=== PATIENT | female | born 1970 | race Two or more races ===

== ENCOUNTER 2020-11-17 09:59 | Emergency (ER) | payer OTHER, SELFPAY ==
[2020-11-17 10:20] VITALS: BP 142/94; PULSE 101; RESP 16; TEMP 36.2; O2SAT 97; BMI 32.9
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
[2020-11-17] MEDS: diphenhydrAMINE HCL 25 MG TABLET 50 MG PO (10:58)
== END 2020-11-17 11:14 | disposition home or self-care (01) ==
PROVIDERS: Emergency Provider Emergency Medicine
DX: L50.9 Urticaria, unspecified (principal)
CPT/HCPCS: 99283; Q0163

== ENCOUNTER 2021-02-06 16:07 | Emergency (ER) | payer OTHER, SELFPAY ==
[2021-02-06 16:29] VITALS: BP 138/72; PULSE 81; RESP 16; TEMP 37.1; O2SAT 97; BMI 34.2
[2021-02-06 18:23] LABS: MANUAL DIFF FLAG NO
[2021-02-06 18:28] LABS: Basophils Absolute Auto 0.1 X10*3/uL (0.0-0.2); Basophils Percent Auto 0.4 % (0-2); Eosinophils Percent Auto 0.2 % (0-4); Hematocrit 44.9 % (37-47); Hemoglobin 15.1 g/dl (12.0-16.0); Imm Gran Abs Auto 0.08 X10*3/uL (0.00-0.03); Imm Gran Pct Auto 0.5 % (0.0-0.4); Lymphocytes Absolute Auto 2.5 X10*3/uL (1.2-4.9); Lymphocytes Percent Auto 16.1 % (20-40); Mean Corpuscular HGB Conc 33.6 g/dl (31.0-35.0); Mean Corpuscular Volume 89.1 fL (80-98); Mean Platelet Volume 9.9 fL (9.4-12.3); Monocytes Absolute Auto 0.7 X10*3/uL (0.1-1.2); Monocytes Percent Auto 4.4 % (2-11); Neutrophils Absolute Auto 12.2 X10*3/uL (2.0-8.3); Neutrophils Percent Auto 78.4 % (45-73); Platelet Count 478 X10*3/uL (160-400); Red Blood Count 5.04 X10*6/uL (4.20-5.50); Red Cell Distribution Width 13.3 % (11.0-16.0); White Blood Count 15.6 X10*3/uL (4.8-10.8)
[2021-02-06 19:13] LABS: Anion Gap 15 (12-20); Blood Urea Nitrogen 9 mg/dL (9-16); Calcium 9.8 mg/dL (8.4-10.2); Carbon Dioxide 21 mmol/L (22-29); Chloride 106 mmol/L (96-108); Creatinine Clr Calc Pharmacy 72.3; Estimated Glomerular Filt Rate > 60; Glucose Random 134 mg/dL (60-115); Lipase 21 U/L (8-78); Sodium 138 mmol/L (135-145)
[2021-02-06 19:14] LABS: Troponin-I High Sensitivity < 3.5 ng/L (<3.5-17.0)
--- NOTE | 2021-02-06 22:11 | ED_ITS ---
HPI - General Adult General Chief complaint: Dizziness Stated complaint: Dizziness, weak, vomiting, nauseous Time Seen by Provider: 02/06/21 22:03 Source: patient Mode of arrival: ambulatory Limitations: no limitations History of Present Illness HPI narrative: Patient comes emergency room complaining of vomiting and diarrhea since yesterday. Patient states that she ate sausage the night before, thinks that the flavor of, tasted funny, aided anyways. In the morning she woke up vomiting and with diarrhea. Patient initially stated that she had dizziness, described as not feeling well, denies being off balance, no room spinning. Patient did not take any medication [id number] prior to arrival Related Data Previous Rx's Medication Instructions Recorded hydrocortisone 1 % topical cream 1 appl TOPICAL TID PRN #28.35 g 11/17/20 prednisone 10 mg tablets in a dose 10 mg PO PER PKG DIR #48 ea 11/17/20 pack hyoscyamine sulfate 0.125 mg tablet 0.125 mg PO QID #10 tab 02/06/21 ondansetron HCl 4 mg tablet 4 mg PO Q6H PRN #10 tab 02/06/21 (Zofran) Allergies Allergy/AdvReac Type Severity Reaction Status Date / Time Influenza Virus Vaccines Allergy Itching Verified 02/06/21 16:32 Review of Systems Review of Systems: Constitutional : No Weight loss, No Fever, No Chills, No Night Sweats, No Fatigue, No Malaise ENT/Mouth : No Hearing loss, No Ear Pain, No Nasal Congestion, No Sinus Pain, No Hoarseness, No sore throat, No Rhinorrhea, No Swallowing Difficulty Eyes: No Eye Pain, No Swelling, No Redness, No Foreign Body, No Discharge, No Vision Changes Cardiovascular : No Chest Pain, No SOB, No Dyspnea on Exertion, No Orthopnea, No Edema, No Palpitations Respiratory : No Cough, No Sputum, No Wheezing, No Smoke Exposure, No Dyspnea Gastrointestinal : Complaining of nausea, vomiting and diarrhea. Constipation, complaining of diffuse abdominal cramping intermittently, No Hematochezia, No Melena Genitourinary : no irregular bleeding, No Dysuria, No Urinary Frequency, No Hematuria, No Urinary Incontinence, No Urgency, No Flank Pain, No Urinary Flow Changes, No Hesitancy Musculoskeletal : No joint pain, No Myalgias, No Joint Swelling Skin : No Skin Lesions, No rash Neuro : No Weakness, No Numbness, No Paresthesias, No Loss of Consciousness, No Dizziness, No Headache Psych : No Anxiety/Panic, No Depression, No SI/HI/AH/VH, No Social Issues, Heme/Lymph: No Bruising, No Bleeding,No Lymphadenopathy Endocrine : No Polyuria, No Polydipsia, No Temperature Intolerance PMFSH Past Medical History Medical History Adrenal mass Anxiety Asthma Depression Fibroid Panic attacks Surgical History H/O: hysterectomy History of cholecystectomy Social History Social History Advance Directives: No Advance Directives Information Provided: No Patient : No Physical Exam Vital Signs: Vital Signs: Last Vital Signs Temp 98.7 F 02/06/21 16:29 Pulse 81 02/06/21 16:29 Resp 16 02/06/21 16:29 BP 138/72 02/06/21 16:29 Pulse Ox 97 02/06/21 16:29 Body Mass Index 34.2 Const: Other: Appearance: Alert. Oriented X3. No acute distress. Well- appearing Eyes: Pupils equal, round and reactive to light. ENT: Pharynx normal. Neck: Normal inspection. Neck supple. No lymph nodes noted. No crepitus CVS: Normal heart rate and rhythm. Pulses normal. Normal S1 and S2 Respiratory: No respiratory distress. Breath sounds normal. No Wheezing. No rales Abdomen: Soft and nontender in all quadrants, No rigidity. No distention. Skin: Skin warm and dry. Normal skin color. Normal skin turgor. Extremities: No lower extremity edema. No lower extremity edema. No Lacerations. No Rash Neuro: Oriented X 3. No motor deficit. No sensory deficit. Moving all extermities. No slurred speech. Course Course Course Narrative: I discussed the physical exam and labs with the patient, patient's white blood cell count likely secondary to the vomiting/diarrhea, likely secondary to the food she ate. Patient is tolerating well p.o. fluids. As mentioned above, physical exam there was no abdominal pain on deep palpation. Medical Decision Making Lab Data Result diagrams: 02/06/21 18:14 02/06/21 18:14 Labs: Lab Results 08/12/2202/06/21 02/06/21 Range/Units 18:14 18:14 18:14 WBC 15.6 H (4.8-10.8) X10*3/uL RBC 5.04 (4.20-5.50) X10*6/uL Hgb 15.1 (12.0-16.0) g/dl Hct 44.9 (37-47) % MCV 89.1 (80-98) fL MCH 30.0 (27.0-33.0) pg MCHC 33.6 (31.0-35.0) g/dl RDW 13.3 (11.0-16.0) % Plt Count 478 H (160-400) X10*3/uL MPV 9.9 (9.4-12.3) fL Immature Gran % (Auto) 0.5 H (0.0-0.4) % Neut % (Auto) 78.4 H (45-73) % Lymph % (Auto) 16.1 L (20-40) % [place] % (Auto) 4.4 (2-11) % Eos % (Auto) 0.2 (0-4) % Baso % (Auto) 0.4 (0-2) % Lymph # (Auto) 2.5 (1.2-4.9) X10*3/uL [place] # (Auto) 0.7 (0.1-1.2) X10*3/uL Eos # (Auto) 0.0 (0.0-0.4) X10*3/uL Baso # (Auto) 0.1 (0.0-0.2) X10*3/uL Abs Immat Gran (auto) 0.08 H (0.00-0.03) X10*3/uL Absolute Neuts (auto) 12.2 H (2.0-8.3) X10*3/uL Absolute Nucleated RBC 0.000 (0.0-0.012) X10*3/uL Nucleated RBC % (auto) 0.0 (0.0-0.2) /100WBC Sodium 138 (135-145) mmol/L Potassium 4.0 (3.3-5.1) mmol/L Chloride 106 (96-108) mmol/L Carbon Dioxide 21 L (22-29) mmol/L Anion Gap 15 (12-20) BUN 9 (9-16) mg/dL Creatinine 0.95 (0.5-1.4) mg/dL Estim Creat Clear Calc 72.3 Estimated GFR > 60 Random Glucose 134 H (60-115) mg/dL Calcium 9.8 (8.4-10.2) mg/dL Magnesium 2.0 (1.6-2.6) mg/dL Troponin I High Sens < 3.5 (<3.5-17.0) ng/L Lipase 21 (8-78) U/L Discharge Plan Discharge Clinical Impression: Nausea vomiting and diarrhea Patient Disposition: Home, Self-Care Instructions: Gastroenteritis (ED) Additional Instructions: Stay well hydrated. Try to drink fluids with electrolytes such as Pedialyte, Gatorade or Powerade. Please follow-up with your primary care physician tomorrow. If you have any worsening or new symptoms, please return to the emergency room or call 911 Prescriptions: New ondansetron HCl [Zofran] 4 mg tablet 4 mg PO Q6H PRN (Reason: nausea and vomiting) Qty: 10 RF: 0 hyoscyamine sulfate 0.125 mg tablet 0.125 mg PO QID Qty: 10 RF: 0 No Action prednisone 10 mg tablets,dose pack 10 mg PO PER PKG DIR Qty: 48 RF: 0 hydrocortisone 1 % cream 1 appl topical TID PRN (Reason: itching) Qty: 28.35 RF: 0
[2021-02-06] MEDS: PHENobarb/Hyoscy/Atropine/Scop 10 ML ELIXIR PO (22:35)
[2021-02-06] MEDS: Ondansetron ODT 4 MG TAB.RAPDIS TRANSLINGU (22:35)
== END 2021-02-06 22:39 | disposition home or self-care (01) ==
PROVIDERS: Emergency Provider Emergency Medicine
DX: R19.7 Diarrhea, unspecified (principal); R11.2 Nausea with vomiting, unspecified
CPT/HCPCS: 36415; 80048; 83690; 83735; 84484; 85025; 96374; 99284

== ENCOUNTER 2021-06-28 13:44 | Emergency (ER) | payer OTHER, SELFPAY | END 2021-06-28 19:34 | disposition left against medical advice (07) | PROVIDERS: Emergency Provider Emergency Medicine | DX: Z04.1 Encounter for examination and observation following transport accident (principal) ==

== ENCOUNTER 2021-12-29 20:12 | Emergency (ER) | payer OTHER, SELFPAY ==
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
[2021-12-29 21:42] VITALS: BP 152/70; PULSE 88; RESP 18; TEMP 37.1; O2SAT 98; BMI 36.0
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
[2021-12-29] MEDS: Acetaminophen 325 MG TABLET 975 MG PO (23:55)
[2021-12-29] MEDS: oxyCODONE HCl Immed Release 5 MG TABLET PO (23:56)
== END 2021-12-30 00:09 | disposition home or self-care (01) ==
PROVIDERS: Emergency Provider Emergency Medicine
DX: S06.0X0A Concussion without loss of consciousness, initial encounter (principal); S16.1XXA Strain of muscle, fascia and tendon at neck level, initial encounter; M54.50 Low back pain, unspecified; M54.2 Cervicalgia; R51.9 Headache, unspecified; V43.52XA Car driver injured in collision with other type car in traffic accident, initial encounter; Y93.9 Activity, unspecified; Y92.410 Unspecified street and highway as the place of occurrence of the external cause; Y99.9 Unspecified external cause status; Z87.891 Personal history of nicotine dependence; Z79.899 Other long term (current) drug therapy
CPT/HCPCS: 70450; 72100; 72125; 99284

== ENCOUNTER 2022-03-02 16:22 | Emergency (ER) | payer OTHER, SELFPAY ==
[2022-03-02 16:36] VITALS: BP 158/75; PULSE 18; RESP 18; TEMP 36.9; O2SAT 98; BMI 34.7
[2022-03-02 16:49] LABS: MANUAL DIFF FLAG NO
[2022-03-02 16:50] LABS: Basophils Absolute Auto 0.1 X10*3/uL (0.0-0.2); Basophils Percent Auto 0.5 % (0-2); Eosinophils Absolute Auto 0.1 X10*3/uL (0.0-0.4); Eosinophils Percent Auto 1.1 % (0-4); Hemoglobin 14.7 g/dl (12.0-16.0); Imm Gran Abs Auto 0.05 X10*3/uL (0.00-0.03); Imm Gran Pct Auto 0.4 % (0.0-0.4); Lymphocytes Absolute Auto 2.2 X10*3/uL (1.2-4.9); Lymphocytes Percent Auto 16.8 % (20-40); Mean Corpuscular HGB Conc 34.2 g/dl (31.0-35.0); Mean Corpuscular Hemoglobin 30.1 pg (27.0-33.0); Mean Corpuscular Volume 88.1 fL (80.0-98.0); Mean Platelet Volume 9.6 fL (9.4-12.3); Monocytes Absolute Auto 0.7 X10*3/uL (0.1-1.2); Neutrophils Absolute Auto 10.1 x10*3/uL (2.0-8.3); Neutrophils Percent Auto 76.2 % (45-73); Platelet Count 442 X10*3/uL (160-400); Red Blood Count 4.88 X10*6/uL (4.20-5.50); Red Cell Distribution Width 13.2 % (11.0-16.0); White Blood Count 13.2 X10*3/uL (4.8-10.8)
[2022-03-02 17:12] LABS: Anion Gap 15 (12-20); Blood Urea Nitrogen 13 mg/dL (9-16); Calcium 9.4 mg/dL (8.4-10.2); Carbon Dioxide 26 mmol/L (22-29); Chloride 104 mmol/L (96-108); Creatinine Clr Calc Pharmacy 72.1; Estimated Glomerular Filt Rate > 60; Glucose Random 109 mg/dL (60-115); Potassium 4.1 mmol/L (3.3-5.1); Sodium 141 mmol/L (135-145)
[2022-03-02 18:39] VITALS: BP 144/77; PULSE 81; RESP 20; TEMP 37; O2SAT 99
[2022-03-02 18:48] LABS: Appearance Urine Turbid; Color Urine Yellow; Glucose Urine UA Negative (Negative); Leukocyte Esterase Urine Negative (Negative); Nitrite Urine Negative (Negative); Urine Blood Negative (Negative); Urine Ketones Negative (Negative); Urine Protein Negative (Neg-Trace)
--- NOTE | 2022-03-02 19:01 | ED_ITS ---
HPI - General Adult General Chief complaint: Headache Stated complaint: headaches/hip/leg pain/numbness in face Time Seen by Provider: 03/02/22 19:01 Source: patient Mode of arrival: ambulatory Limitations: no limitations History of Present Illness HPI narrative: Patient history of depression, anxiety comes in with multiple problems chronic body pain medication are effective seen a psychiatrist was started on sertraline patient has not taken it patient does have poor sleep pain is mostly in the upper back area Related Data Previous Rx's Medication Instructions Recorded hydrocortisone 1 % topical cream 1 appl topical TID PRN itching 11/17/20 #28.35 grams prednisone 10 mg tablets in a dose 10 mg PO PER PKG DIR #48 ea 11/17/20 pack hyoscyamine sulfate 0.125 mg tablet 0.125 mg PO QID #10 tabs 02/06/21 ondansetron HCl 4 mg tablet 4 mg PO Q6H PRN nausea and 02/06/21 (Zofran) vomiting #10 tabs cyclobenzaprine 5 mg tablet 5 mg PO TID PRN muscle spasm #10 12/30/21 tabs ibuprofen 600 mg tablet 600 mg PO Q6H PRN pain #20 tabs 12/30/21 oxycodone 5 mg tablet 5 mg PO Q6H PRN pain #10 tabs 12/30/21 cyclobenzaprine 10 mg tablet 10 mg PO Q8H #20 tabs 03/02/22 gabapentin 300 mg capsule 300 mg PO BEDTIME #30 caps 03/02/22 ibuprofen 600 mg tablet 600 mg PO Q8H PRN pain #30 tabs 03/02/22 Allergies Allergy/AdvReac Type Severity Reaction Status Date / Time Influenza Virus Vaccines Allergy Itching Verified 02/06/21 16:32 Review of Systems 2 Review of Systems: Yes all other systems are reviewed and are negative PMFSH Past Medical History Medical History Adrenal mass Anxiety Asthma Depression Fibroid Panic attacks Surgical History H/O: hysterectomy History of cholecystectomy Social History Social History Alcohol intake: never Patient Tobacco Use Status: Former Tobacco user Advance Directives: No Advance Directives Information Provided: Yes Physical Exam ED Vital Signs: Vital Signs - 24 hr 03/02/22 16:36 03/02/22 18:39 Temperature 98.4 F 98.6 F Pulse Rate 18 L 81 Respiratory Rate 18 20 Blood Pressure 158/75 H 144/77 H Pulse Oximetry 98 99 Oxygen Delivery Method Room Air Room Air BMI result Body Mass Index 34.7 Appearance: Alert. Oriented X3. No acute distress. Anxious Eyes: PERRLA, No Nystagmus ENT: Pharynx normal. Oral Mucosa moist Neck: Normal inspection. Neck supple. CVS: Normal heart rate and rhythm. Pulses normal. Respiratory: No respiratory distress. Equal air entry bilateral, no wheezing /rales/rhonchi Abdomen: Soft and nontender. Bowel sounds are present, no mass palpable, no CVA tenderness Skin: Skin warm and dry. Normal skin color. Normal skin turgor. Extremities: No lower extremity edema. No calf tenderness back; diffuse interscapular suprascapular muscle tenderness Neuro: Oriented X 3. No motor deficit. No sensory deficit.No cerebellar signs , cranial nerves II-XII intact Medical Decision Making MDM Narrative Medical decision making narrative: Patient with chronic fatigue anxiety depression likely has fibromyalgia will start patient on Flexeril and gabapentin Lab Data Lab results reviewed: Yes I reviewed the patient's lab results. Result diagrams: 03/02/22 16:41 03/02/22 16:41 Labs: Lab Results 03/02/22 03/02/22 03/02/22 Range/Units 16:41 16:41 18:39 WBC 13.2 H (4.8-10.8) X10*3/uL RBC 4.88 (4.20-5.50) X10*6/uL Hgb 14.7 (12.0-16.0) g/dl Hct 43.0 (37.0-47.0) % MCV 88.1 (80.0-98.0) fL MCH 30.1 (27.0-33.0) pg MCHC 34.2 (31.0-35.0) g/dl RDW 13.2 (11.0-16.0) % Plt Count 442 H (160-400) X10*3/uL MPV 9.6 (9.4-12.3) fL Immature Gran % (Auto) 0.4 (0.0-0.4) % Neut % (Auto) 76.2 H (45-73) % Lymph % (Auto) 16.8 L (20-40) % [place] % (Auto) 5.0 (2-11) % Eos % (Auto) 1.1 (0-4) % Baso % (Auto) 0.5 (0-2) % Lymph # (Auto) 2.2 (1.2-4.9) X10*3/uL [place] # (Auto) 0.7 (0.1-1.2) X10*3/uL Eos # (Auto) 0.1 (0.0-0.4) X10*3/uL Baso # (Auto) 0.1 (0.0-0.2) X10*3/uL Abs Immat Gran (auto) 0.05 H (0.00-0.03) X10*3/uL Absolute Neuts (auto) 10.1 H (2.0-8.3) x10*3/uL Absolute Nucleated RBC 0.000 (0.0-0.012) X10*3/uL Nucleated RBC % (auto) 0.0 (0.0-0.2) /100WBC Sodium 141 (135-145) mmol/L Potassium 4.1 (3.3-5.1) mmol/L Chloride 104 (96-108) mmol/L Carbon Dioxide 26 (22-29) mmol/L Anion Gap 15 (12-20) BUN 13 (9-16) mg/dL Creatinine 0.94 (0.5-1.4) mg/dL Estim Creat Clear Calc 72.1 Estimated GFR > 60 Random Glucose 109 (60-115) mg/dL Calcium 9.4 (8.4-10.2) mg/dL Urine Color Yellow Urine Appearance Turbid Urine pH 6.0 (5.0-9.0) Ur Specific [place] 1.020 (1.005-1.025) Urine Protein Negative (Neg-Trace) mg/dL Urine Glucose (UA) Negative (Negative) mg/dL Urine Ketones Negative (Negative) mg/dL Urine Blood Negative (Negative) Urine Nitrite Negative (Negative) Ur Leukocyte Esterase Negative (Negative) Discharge Plan Discharge Clinical Impression: Fibromyalgia Patient Disposition: Home, Self-Care Instructions: Fibromyalgia (ED) Additional Instructions: Take medication as prescribed Follow-up with your PCP Prescriptions: New gabapentin 300 mg capsule 300 mg PO BEDTIME Qty: 30 0RF cyclobenzaprine 10 mg tablet 10 mg PO Q8H Qty: 20 0RF ibuprofen 600 mg tablet 600 mg PO Q8H PRN (Reason: pain) Qty: 30 0RF No Action ondansetron HCl [Zofran] 4 mg tablet 4 mg PO Q6H PRN (Reason: nausea and vomiting) Qty: 10 0RF hyoscyamine sulfate 0.125 mg tablet 0.125 mg PO QID Qty: 10 0RF prednisone 10 mg tablets,dose pack 10 mg PO PER PKG DIR Qty: 48 0RF Rx Instructions: Take 4 tabs for 3 days, then 3 tabs for 3 days, then 2 tabs for 3 days, then 1 tab for 3 days. discard remainder hydrocortisone 1 % cream 1 appl topical TID PRN (Reason: itching) Qty: 28.35 0RF cyclobenzaprine 5 mg tablet 5 mg PO TID PRN (Reason: muscle spasm) Qty: 10 0RF ibuprofen 600 mg tablet 600 mg PO Q6H PRN (Reason: pain) Qty: 20 0RF oxycodone 5 mg tablet 5 mg PO Q6H PRN (Reason: pain) Qty: 10 0RF Rx Instructions: Partial Fill upon patient request. Narcotic may cause drowsiness, no driving for 6 hours after taking Interventions: ED Discharge Assessment Last Done: 03/02/22 19:49 Discharge Date/Time: 03/02/22 19:52
[2022-03-02] MEDS: Ibuprofen 600 MG TABLET PO (19:18)
[2022-03-02] MEDS: Cyclobenzaprine HCl 10 MG TABLET PO (19:18)
[2022-03-02] MEDS: Gabapentin 300 MG CAPSULE PO (19:18)
== END 2022-03-02 19:52 | disposition home or self-care (01) ==
PROVIDERS: Emergency Provider Internal Medicine
DX: M79.7 Fibromyalgia (principal)
CPT/HCPCS: 36415; 80048; 81003; 85025; 99283

== ENCOUNTER 2022-03-13 17:53 | Emergency (ER) | payer OTHER, SELFPAY ==
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
[2022-03-13 18:02] VITALS: BP 130/83; PULSE 109; RESP 18; TEMP 36.9; O2SAT 100; BMI 34.7
== END 2022-03-13 19:50 | disposition left against medical advice (07) ==
PROVIDERS: Emergency Provider Emergency Medicine
DX: M25.552 Pain in left hip (principal)
CPT/HCPCS: 73502; 99281; 99283

== ENCOUNTER 2023-05-08 19:43 | Emergency (ER) | payer OTHER, SELFPAY ==
--- NOTE | ~2023-05-08 | CT_ITS ---
EXAMINATION: CT ABDOMEN AND PELVIS WITHOUT CONTRAST CLINICAL INFORMATION: Diffuse abdominal pain COMPARISON: None available. TECHNIQUE: Multidetector volumetric imaging was performed from the superior aspect of the liver through the pubic symphysis. Sagittal and coronal reformatted images were obtained on the technologist's workstation. This CT examination was performed using dose optimization techniques as appropriate, variously including the following: *Automated exposure control *Adjustment of mA and/or kV according to patient size (this includes techniques or standardized protocols for targeted exams where dose is matched to indication/reason for exam; i.e. extremities or head) *Use of iterative reconstruction technique DLP: 745 mGy-cm FINDINGS: Evaluation of solid organs, vascular structures, and bowel wall limited in the absence of intravenous contrast. LUNG BASES: Unremarkable. LIVER AND BILIARY TREE: Diffuse hepatic steatosis. Hepatomegaly with liver spanning approximately 20 cm in craniocaudal dimension. GALLBLADDER: Status post cholecystectomy. PANCREAS: Unremarkable. SPLEEN: Unremarkable. ADRENAL GLANDS: Small, 1.6 x 1.2 cm right adrenal nodule measuring 2 Hounsfield units, consistent with a lipid rich adenoma for which no follow-up imaging is recommended. KIDNEYS AND URETERS: Unremarkable. GASTROINTESTINAL TRACT: Small esophageal hiatal hernia. Incidental descending duodenal diverticulum. No bowel wall thickening or perienteric/pericolonic inflammatory findings. Normal appendix. VASCULAR: Mild aortoiliac calcific atherosclerosis. LYMPH NODES: No lymphadenopathy. PERITONEUM: No ascites. BLADDER: Unremarkable. PELVIC VISCERA: Status post hysterectomy. ABDOMINAL AND PELVIC WALL: Unremarkable. OSSEOUS STRUCTURES: Unremarkable. CT/CT abdomen pelvis wo IV con IMPRESSION: 1. No acute abnormality in the abdomen or pelvis, within the limitations of noncontrast technique. Specifically, no evidence of colitis, if clinically queried 2. Hepatomegaly and hepatic steatosis.
[2023-05-08 19:44] VITALS: BP 153/72; PULSE 90; RESP 18; TEMP 36.8; O2SAT 100; BMI 34.9
--- NOTE | 2023-05-08 19:45 | ED.ABDPAIN ---
HPI - Abdominal Pain General Chief Complaint: General Medical Stated Complaint: abd pain, nausea, dizzy Time Seen by Provider: 05/08/23 21:27 Source: patient and family Mode of arrival: ambulatory Limitations: no limitations History of Present Illness HPI narrative: [age] year female came in for evaluation of intermittent epigastric abdominal pain for the past 4 days pain is mainly localized to the epigastric area radiating down to the left lower abdominal area be described as burning sensation in the epigastric area, declined any fever chills, pain is associated with nausea but no vomiting, normal bowel movement, no dysuria, no frequency urination, no hematuria. Declined any blood in the urine or stool. History of cholecystectomy. Related Data Previous Rx's Medication Instructions Recorded hydrocortisone 1 % topical cream 1 appl topical TID PRN itching 11/17/20 #28.35 grams prednisone 10 mg tablets in a dose 10 mg PO PER PKG DIR #48 ea 11/17/20 pack hyoscyamine sulfate 0.125 mg tablet 0.125 mg PO QID #10 tabs 02/06/21 ondansetron HCl 4 mg tablet 4 mg PO Q6H PRN nausea and 02/06/21 (Zofran) vomiting #10 tabs cyclobenzaprine 5 mg tablet 5 mg PO TID PRN muscle spasm #10 12/30/21 tabs ibuprofen 600 mg tablet 600 mg PO Q6H PRN pain #20 tabs 12/30/21 oxycodone 5 mg tablet 5 mg PO Q6H PRN pain #10 tabs 12/30/21 cyclobenzaprine 10 mg tablet 10 mg PO Q8H #20 tabs 03/02/22 gabapentin 300 mg capsule 300 mg PO BEDTIME #30 caps 03/02/22 ibuprofen 600 mg tablet 600 mg PO Q8H PRN pain #30 tabs 03/02/22 omeprazole 40 mg capsule,delayed 40 mg PO DAILY #20 caps 05/09/23 release Allergies Allergy/AdvReac Type Severity Reaction Status Date / Time Influenza Virus Vaccines Allergy Itching Verified 03/13/22 18:02 Seasonal Allergies Allergy Nasal Verified 05/08/23 19:50 congestion Review of Systems Review of Systems all other systems are reviewed and are negative Constitutional: Reports as per HPI and Reports no additional constitutional complaints Eyes: Reports as per HPI and Reports no additional eye complaints Reports system reviewed and no additional complaints, except as documented Cardiovascular: Reports as per HPI and Reports no additional cardiovascular complaints Respiratory: Reports as per HPI and Reports no additional respiratory complaints Gastrointestinal: Reports as per HPI and Reports no additional gastrointestinal complaints Genitourinary: Reports no additional female genitourinary complaints Musculoskeletal: Reports no additional musculoskeletal complaints Skin/Breast: Reports system reviewed and no additional complaints, except as docu Psychiatric: Reports no additional psychiatric complaints Endocrine: Reports no additional endocrine complaints Hematologic/Lymphatic: Reports no additional hematologic/lymphatic complaints Allergic/Immunologic: Reports no additional allergic/immunologic complaints Reports system reviewed and no additional complaints, except as documented and Reports Abnormal speech present [facility] Past Medical History Medical History Panic attacks Depression Anxiety Asthma Adrenal mass Fibroid Surgical History History of cholecystectomy H/O: hysterectomy Social History Social History Alcohol intake: never Patient Tobacco Use Status: Former Tobacco user Smoked in Last 30 Days: No Use of substances other than those prescribed or required for medical reasons: No Advance Directives: No Advance Directives Information Provided: No Physical Exam ED Vital Signs: Vital Signs - 24 hr 05/08/23 19:44 05/08/23 20:49 05/08/23 20:51 Temperature 98.2 F Pulse Rate 90 78 87 Respiratory Rate 18 Blood Pressure 153/72 H 114/64 117/72 Pulse Oximetry 100 Oxygen Delivery Method Room Air 05/08/23 20:53 05/08/23 22:00 05/09/23 00:05 Temperature 97.7 F 98.0 F Pulse Rate 86 78 70 Respiratory Rate 16 16 Blood Pressure 121/61 143/80 H 147/80 H Pulse Oximetry 99 98 Oxygen Delivery Method Room Air Room Air BMI result Body Mass Index 34.9 Vital signs have been reviewed and appear to be correct. Blood pressure elevated. Heart rate normal. Respiratory rate normal. Temperature normal. Oxygen saturation normal. Appearance: Alert. Oriented X3. No acute distress. Head: Normal external exam. Normocephalic. Atraumatic. No Hansen signs noted. No raccoon eyes noted Eyes: PERRLA. EOMI. Conjunctiva and sclera normal. Eyelids normal. ENT: TM's Normal. Pharynx normal. Uvula midline. Moist mucous membranes. No trismus noted. No drooling noted. No muffled voice noted. Neck: Normal inspection. Neck supple. FROM. No adenopathy. Thyroid Normal. No meningeal signs. No neck mass noted. CVS: Normal heart rate and rhythm. Heart sound normal. No murmurs noted. Pulses normal throughout. Respiratory: No respiratory distress. Painless inspiration. Breath sounds normal. No wheezes/rales/rhonchi noted. Chest nontender. No accessory muscle usage noted or decreased air movement noted. Abdomen: Soft , mild epigastric tenderness, no guarding, no rebound tenderness.. Bowel sounds normal in all 4 quadrants. No distention noted. No organomegaly noted. No visible injury noted. Back: No CVA tenderness. Full range of motion noted. Skin: Skin warm and dry. Normal skin color. Normal skin turgor. No rashes/lesions/lacerations noted. Extremities: No lower extremity edema. Extremities exhibit normal range of motion. Extremities nontender. Neuro: Oriented X 3. Cranial nerve exam: II-XII are grossly intact No motor deficit. No sensory deficit. Reflexes normal. Course Course Course Narrative: RME: 53yo F w/ PMHx cholecystectomy, fibromylagia c/o nausea, epigastric abdominal pain, left groin pain, dizziness/lightheadedness, neck pain, headaches, left ear pain, right index finger pain, fatigue, decreased PO intake x4 days. Was seen at today and told to come to ED. denies EKG, Labs, UA, orthostatics ordered Full HPI, ROS and PE to be performed by primary ED provider. Reevaluation(s) Reevaluation #1: patient feels better after IV fluids/Pepcid /Zofran and able to tolerate p.o. intake. Labs showing slight elevation of lipase which not clinically significant, CT of the abdomen pelvis is showing no acute intra-abdominal pathology. Patient was instructed to follow-up with PCP. Time: 00:08 Medical Decision Making Differential Diagnosis Differential Diagnoses: The differential diagnosis associated with the presentation includes ( ACS, gastritis, pancreatitis, acute appendicitis, colitis, diverticulitis, electrolyte abnormality, severe anemia , UTI, .) Admission/Observation Consideration of admission/observation: Escalation of care including admission/observation considered Lab Data MDM Lab Attestation statement: I reviewed the patient's lab results. 05/08/23 20:14 05/08/23 20:14 Labs: Lab Results 05/08/23 05/08/23 Range/Units 20:14 21:18 WBC 12.0 H (4.8-10.8) X10*3/uL RBC 4.67 (4.20-5.50) X10*6/uL Hgb 14.0 (12.0-16.0) g/dl Hct 41.0 (37.0-47.0) % MCV 87.8 (80.0-98.0) fL MCH 30.0 (27.0-33.0) pg MCHC 34.1 (31.0-35.0) g/dl RDW 13.0 (11.0-16.0) % Plt Count 393 (160-400) X10*3/uL MPV 9.8 (9.4-12.3) fL Immature Gran % (Auto) 0.4 (0.0-0.4) % Neut % (Auto) 69.3 (45-73) % Lymph % (Auto) 23.0 (20-40) % [place] % (Auto) 5.2 (2-11) % Eos % (Auto) 1.6 (0-4) % Baso % (Auto) 0.5 (0-2) % Lymph # (Auto) 2.8 (1.2-4.9) X10*3/uL [place] # (Auto) 0.6 (0.1-1.2) X10*3/uL Eos # (Auto) 0.2 (0.0-0.4) X10*3/uL Baso # (Auto) 0.1 (0.0-0.2) X10*3/uL Abs Immat Gran (auto) 0.05 H (0.00-0.03) X10*3/uL Absolute Neuts (auto) 8.3 (2.0-8.3) x10*3/uL Absolute Nucleated RBC 0.000 (0.0-0.012) X10*3/uL Nucleated RBC % (auto) 0.0 (0.0-0.2) /100WBC PT 12.5 (11.1-13.3) SEC INR 1.0 (0.9-1.1) Sodium 139 (135-145) mmol/L Potassium 3.7 (3.3-5.1) mmol/L Chloride 103 (96-108) mmol/L Carbon Dioxide 26 (22-29) mmol/L Anion Gap 14 (12-20) BUN 12 (9-16) mg/dL Creatinine 1.06 (0.5-1.4) mg/dL Estim Creat Clear Calc 63.4 Estimated GFR 54 Random Glucose 136 H (60-115) mg/dL Calcium 9.7 (8.4-10.2) mg/dL Magnesium 1.7 (1.6-2.6) mg/dL Total Bilirubin 0.3 (0.0-1.0) mg/dL Direct Bilirubin 0.1 (0.0-0.5) mg/dL AST 25 (5-31) U/L ALT 52 H (0-31) U/L Alkaline Phosphatase 112 (39-117) U/L Troponin I High Sens < 2.7 (<3.5-17.0) ng/L Total Protein 7.3 (6.5-8.0) g/dL Albumin 4.4 (3.5-5.0) g/dL Lipase 80 H (8-78) U/L Urine Color Yellow Urine Appearance Clear Urine pH 5.5 (5.0-9.0) Ur Specific [place] 1.025 (1.005-1.025) Urine Protein Negative (Neg-Trace) mg/dL Urine Glucose (UA) Negative (Negative) mg/dL Urine Ketones Negative (Negative) mg/dL Urine Blood Negative (Negative) Urine Nitrite Negative (Negative) Ur Leukocyte Esterase Negative (Negative) Urine Test NEGATIVE (NEGATIVE) COVID-19 (PENNY) Negative (Negative) COVID-19 Clin Com See Note Influenza Type A (ALEX) Negative (Negative) Influenza Type B (ALEX) Negative (Negative) Influenza A & B Note See Note Independent Interpretation I performed an independent interpretation of an: CT Scan ( Abdomen and pelvis: No acute intra-abdominal pathology.) Radiology Impression Discussion of test interpretation with radiology: I have reviewed the radiologist's reading. ( No acute abnormality in the abdomen or pelvis, within the limitations of noncontrast technique. Specifically, no evidence of colitis, if clinically queried 2. Hepatomegaly and hepatic steatosis. ) Medications Administered Discontinued Medications Generic Name Dose Route Start Last Admin Trade Name Freq PRN Reason Stop Dose Admin Al Hydroxide/Mg Hydroxide 30 ml 05/08/23 21:33 05/08/23 22:04 Magnesium Hydrox/Alum Hydrox 30 Ml Oral.Susp PO 05/08/23 21:34 30 ml ONCE ONE Administration Famotidine 20 mg 05/08/23 21:33 05/08/23 22:04 Famotidine/Pf 20 Mg/2 Ml Vial IVPUSH 05/08/23 21:34 20 mg ONCE ONE Administration Sodium Chloride 1,000 mls @ 999 mls/hr 05/08/23 21:33 05/08/23 21:59 Ns IV 05/08/23 22:33 999 mls/hr .Q1H1M ONE Administration Ondansetron HCl 4 mg 05/08/23 21:33 05/08/23 22:04 Ondansetron Hcl 4 Mg/2 Ml Vial IVPUSH 05/08/23 21:34 4 mg ONCE ONE Administration Discharge Plan Discharge Clinical Impression: Gastritis Qualifiers: Gastritis type: unspecified gastritis Chronicity: acute Gastritis bleeding: without bleeding Qualified Code(s): K29.00 - Acute gastritis without bleeding Patient Disposition: Home, Self-Care Instructions: Gastritis (ED) Prescriptions: New omeprazole 40 mg capsule,delayed release(DR/EC) 40 mg PO DAILY Qty: 20 0RF No Action ondansetron HCl [Zofran] 4 mg tablet 4 mg PO Q6H PRN (Reason: nausea and vomiting) Qty: 10 0RF hyoscyamine sulfate 0.125 mg tablet 0.125 mg PO QID Qty: 10 0RF prednisone 10 mg tablets,dose pack 10 mg PO PER PKG DIR Qty: 48 0RF Rx Instructions: Take 4 tabs for 3 days, then 3 tabs for 3 days, then 2 tabs for 3 days, then 1 tab for 3 days. discard remainder hydrocortisone 1 % cream 1 appl topical TID PRN (Reason: itching) Qty: 28.35 0RF cyclobenzaprine 5 mg tablet 5 mg PO TID PRN (Reason: muscle spasm) Qty: 10 0RF ibuprofen 600 mg tablet 600 mg PO Q6H PRN (Reason: pain) Qty: 20 0RF oxycodone 5 mg tablet 5 mg PO Q6H PRN (Reason: pain) Qty: 10 0RF Rx Instructions: Partial Fill upon patient request. Narcotic may cause drowsiness, no driving for 6 hours after taking gabapentin 300 mg capsule 300 mg PO BEDTIME Qty: 30 0RF cyclobenzaprine 10 mg tablet 10 mg PO Q8H Qty: 20 0RF ibuprofen 600 mg tablet 600 mg PO Q8H PRN (Reason: pain) Qty: 30 0RF Referrals: Abe Graf MD [Physician] -
--- NOTE | 2023-05-08 19:48 | ECG_ITS ---
Test Reason : DIZZINESS Blood Pressure : / mmHG Vent. Rate : 092 BPM Atrial Rate : 092 BPM P-R Int : 156 ms QRS Dur : 094 ms QT Int : 350 ms P-R-T Axes : 060 078 049 degrees QTc Int : 432 ms Normal sinus rhythm RSR' or QR pattern in V1 suggests right ventricular conduction delay Nonspecific T wave abnormality Abnormal ECG No previous ECGs available Referred By: Elizabeth Rodgers Electronically Signed By:CATHRYN PORTER MD
[2023-05-08 20:23] LABS: Eosinophils Percent Auto 1.6 % (0-4); Imm Gran Pct Auto 0.4 % (0.0-0.4); MANUAL DIFF FLAG NO; Mean Corpuscular HGB Conc 34.1 g/dl (31.0-35.0); Mean Corpuscular Volume 87.8 fL (80.0-98.0); Mean Platelet Volume 9.8 fL (9.4-12.3); Monocytes Percent Auto 5.2 % (2-11); Neutrophils Percent Auto 69.3 % (45-73); Platelet Count 393 X10*3/uL (160-400); Red Blood Count 4.67 X10*6/uL (4.20-5.50)
[2023-05-08 20:24] LABS: Basophils Absolute Auto 0.1 X10*3/uL (0.0-0.2); Basophils Percent Auto 0.5 % (0-2); Eosinophils Absolute Auto 0.2 X10*3/uL (0.0-0.4); Imm Gran Abs Auto 0.05 X10*3/uL (0.00-0.03); Lymphocytes Absolute Auto 2.8 X10*3/uL (1.2-4.9); Monocytes Absolute Auto 0.6 X10*3/uL (0.1-1.2); Neutrophils Absolute Auto 8.3 x10*3/uL (2.0-8.3)
[2023-05-08 20:29] LABS: Prothrombin Time 12.5 SEC (11.1-13.3)
[2023-05-08 20:38] LABS: Alanine Aminotransferase 52 U/L (0-31); Albumin Level 4.4 g/dL (3.5-5.0); Alkaline Phosphatase 112 U/L (39-117); Anion Gap 14 (12-20); Aspartate Amino Transferase 25 U/L (5-31); Bilirubin Direct 0.1 mg/dL (0.0-0.5); Bilirubin Total 0.3 mg/dL (0.0-1.0); Blood Urea Nitrogen 12 mg/dL (9-16); Calcium 9.7 mg/dL (8.4-10.2); Carbon Dioxide 26 mmol/L (22-29); Chloride 103 mmol/L (96-108); Creatinine Clr Calc Pharmacy 63.4; Estimated Glomerular Filt Rate 54; Glucose Random 136 mg/dL (60-115); Lipase 80 U/L (8-78); Magnesium 1.7 mg/dL (1.6-2.6); Potassium 3.7 mmol/L (3.3-5.1); Sodium 139 mmol/L (135-145); Total Protein 7.3 g/dL (6.5-8.0)
[2023-05-08 20:45] LABS: IDNOW Serial# 6674DD1D; Influenza A Negative (Negative)
[2023-05-08 20:46] LABS: COVID-19 Test Negative (Negative); IDNOW Serial# 55D5AD1C; Influenza B2 Negative (Negative)
[2023-05-08 20:49] VITALS: BP 114/64; PULSE 78
[2023-05-08 20:50] LABS: Troponin-I High Sensitivity < 2.7 ng/L (<3.5-17.0)
[2023-05-08 20:51] VITALS: BP 117/72; PULSE 87
[2023-05-08 20:53] VITALS: BP 121/61; PULSE 86
[2023-05-08 21:28] LABS: Appearance Urine Clear; Color Urine Yellow; Glucose Urine UA Negative (Negative); Leukocyte Esterase Urine Negative (Negative); Nitrite Urine Negative (Negative); PH 5.5 (5.0-9.0); Specific Gravity - Urine 1.025 (1.005-1.025); Urine Blood Negative (Negative); Urine Ketones Negative (Negative); Urine Protein Negative (Neg-Trace)
[2023-05-08 21:30] LABS: UPreg QC Valid YES; Urine Pregnancy NEGATIVE (NEGATIVE)
[2023-05-08] MEDS: 0.9 % Sodium Chloride 1,000 ML 999 ML IV (21:59)
[2023-05-08 22:00] VITALS: BP 143/80; PULSE 78; RESP 16; TEMP 36.5; O2SAT 99
[2023-05-08] MEDS: Famotidine/PF 20 MG/2 ML VIAL IVPUSH (22:04)
[2023-05-08] MEDS: Magnesium Hydrox/Alum Hydrox 30 ML ORAL.SUSP PO (22:04)
[2023-05-08] MEDS: ondansetron HCL 4 MG/2 ML VIAL IVPUSH (22:04)
--- NOTE | 2023-05-08 22:21 | PC.NURSE ---
pt a&ox4, vss, reporting 4 days of nausea/vomiting with intermittent diarrhea, upper abd pain, 20G IV in right forearm, pt medicated per SEP, 1L NS running. pt pending CT scan. no new orders at this time.
--- NOTE | 2023-05-08 22:44 | PC.NURSE ---
pt reporting some improvement in pain and nausea after medications, pending CT scan results.
--- NOTE | 2023-05-09 00:01 | PC.NURSE ---
Took over care at 23:00 from ANDREW Bojorquez, provider into discuss plan of care and discharge home, no sign of distress. Awaiting disposition.
[2023-05-09 00:05] VITALS: BP 147/80; PULSE 70; RESP 16; TEMP 36.7; O2SAT 98
--- NOTE | 2023-05-09 00:20 | PC.NURSE ---
Reviewed discharge instruction with pt. pt verbalized understanding. No sign of distress upon discharge.
== END 2023-05-09 00:22 | disposition home or self-care (01) ==
PROVIDERS: Physician Assistant; Emergency Provider Emergency Medicine
DX: K29.00 Acute gastritis without bleeding (principal); R10.13 Epigastric pain; R11.0 Nausea; M79.7 Fibromyalgia; R10.30 Lower abdominal pain, unspecified; R42 Dizziness and giddiness; Z11.52 Encounter for screening for COVID-19; Z79.899 Other long term (current) drug therapy
CPT/HCPCS: 36415; 74176; 80048; 80076; 81003; 81025; 83690; 83735; 84484; 85025; 85610; 87502; 87635; 93005; 96374; 96375; 99285; J2405

== ENCOUNTER 2024-02-11 18:02 | Emergency (ER) | payer OTHER, SELFPAY ==
--- NOTE | ~2024-02-11 | XR_ITS ---
EXAMINATION: XR ANKLE, RIGHT CLINICAL INFORMATION: Fell and twisted ankle, pain mostly along the lateral side COMPARISON: None available. TECHNIQUE: AP, lateral, and mortise views of the right ankle. FINDINGS: No acute fracture or dislocation. Ankle mortise is within normal limits. Soft tissue swelling about the ankle joint. XR/XR ankle RT min 3V IMPRESSION: No acute fracture or dislocation. Soft tissue swelling about the ankle joint.
[2024-02-11 18:08] VITALS: BP 136/73; BP 170/100; PULSE 111; PULSE 90; RESP 18; TEMP 37.2; O2SAT 100; O2SAT 98; BMI 36.4
[2024-02-11 18:12] VITALS: BP 136/73; PULSE 90; RESP 18; TEMP 37.2; O2SAT 100
[2024-02-11 18:47] LABS: MANUAL DIFF FLAG NO
--- NOTE | 2024-02-11 18:51 | ED_ITS ---
HPI - Fall General Chief Complaint: Extremity Injury, Lower Stated Complaint: right ankle swelling, slight deformity Time Seen by Provider: 02/11/24 18:41 Source: patient and family Mode of arrival: EMS Limitations: no limitations History of Present Illness ED Provider: Dr. Jose Antonio Bartlett HPI Narrative: 53-year-old female with a history diabetes mellitus, depression, anxiety, rheumatoid arthritis, fibromyalgia who presents emergency department for evaluation of trip and fall injury. Patient states that she tripped over a stump that she did not see. She states that she fell forward and struck her face but did not lose consciousness. Patient felt a popping sensation in her right ankle. She is currently complaining of right ankle pain which is severe in his 04/12 is worse with movement. Patient was unable to stand and walk and was transported by ambulance. She denies headache, nausea, vomiting, neck pain, chest pain. Patient states she did drink some alcohol prior to falling. Related Data Previous Rx's ?Medication ?Instructions ?Recorded hydrocortisone 1 % topical cream 1 appl topical TID PRN itching 11/17/20 #28.35 grams prednisone 10 mg tablets in a dose 10 mg PO PER PK DIR #48 ea 11/17/20 pack hyoscyamine sulfate 0.125 mg tablet 0.125 mg PO QID #10 tabs 02/06/21 ondansetron HCl 4 mg tablet 4 mg PO Q6H PRN nausea and 02/06/21 (Zofran) vomiting #10 tabs cyclobenzaprine 5 mg tablet 5 mg PO TID PRN muscle spasm #10 12/30/21 tabs ibuprofen 600 mg tablet 600 mg PO Q6H PRN pain #20 tabs 12/30/21 oxycodone 5 mg tablet 5 mg PO Q6H PRN pain #10 tabs 12/30/21 cyclobenzaprine 10 mg tablet 10 mg PO Q8H #20 tabs 03/02/22 gabapentin 300 mg capsule 300 mg PO BEDTIME #30 caps 03/02/22 ibuprofen 600 mg tablet 600 mg PO Q8H PRN pain #30 tabs 03/02/22 omeprazole 40 mg capsule,delayed 40 mg PO DAILY #20 caps 05/09/23 release acetaminophen 500 mg tablet 1,000 mg (2 x 500 mg) PO Q6H PRN 02/11/24 (Tylenol Extra Strength) fever or pain #20 tabs ibuprofen 400 mg tablet 400 mg PO TID PRN fever or pain 02/11/24 #30 tabs oxycodone 5 mg tablet 5 mg PO Q6H PRN pain #10 tabs 02/11/24 Allergies Allergy/AdvReac Type Severity Reaction Status Date / Time Influenza Virus Vaccines Allergy Itching Verified 02/11/24 18:11 Seasonal Allergies Allergy Nasal Verified 02/11/24 18:11 congestion Review of Systems 2 Review of Systems: Yes all other systems are reviewed and are negative [facility] Past Medical History Medical History Panic attacks Depression Anxiety Asthma Adrenal mass Fibroid Surgical History History of cholecystectomy H/O: hysterectomy Social History Social History Alcohol intake: never Patient Tobacco Use Status: Former Tobacco user Smoked in Last 30 Days: No Use of substances other than those prescribed or required for medical reasons: Yes Substance Use Type: Marijuana Advance Directives: No Advance Directives Information Provided: No Do you have a plan to hurt others: No Plan Patient : No Physical Exam 2 Vital Signs: Vital Signs: Last Vital Signs Temp 98.9 F 02/11/24 18:12 Pulse 90 02/11/24 18:12 Resp 18 02/11/24 18:12 BP 136/73 02/11/24 18:12 Pulse Ox 100 02/11/24 18:12 O2 Del Method Room Air 02/11/24 18:12 BMI result Body Mass Index 36.4 Vital signs were normal Exam: General: Awake, alert in no distress Head: Normocephalic, atraumatic EENT: PERRL, Lids normal, sclera normal, conjunctiva normal, nose normal , ears normal, throat without erythema or exudates Neck: Supple, no adenopathy Lung: breath sounds symmetric, no wheezing, rales or rhonchi Chest: symmetric movement, nontender Heart: regular rate and rhythm, normal S1, S2 no murmurs or rubs Abdomen: soft, non-tender, nondistended, normal bowel sounds Back: no vertebral tenderness, no CVAT Extremities: Mild soft tissue swelling over the lateral malleolus with tenderness palpation of this area, patient does have pain with movement of her ankle, there is no tenderness or swelling over foot Neuro: Awake, alert, oriented, normal speech, cranial nerves intact, moves all extremities symmetrically Psych: Pleasant, cooperative Medical Decision Making Medical Decision Making [facility] Narrative: 53-year-old female with a history diabetes mellitus, depression, anxiety, rheumatoid arthritis, fibromyalgia who presents emergency department for evaluation of trip and fall injury with right ankle pain and difficulty walking secondary to her pain. Patient states she did strike her face when she fell but she did not have any loss of consciousness. Vital signs were normal. Examination did reveal soft tissue swelling over the right lateral malleolus with pain with movement of her right ankle. Differential diagnosis: ?Includes but is not limited to closed head injury, skull fracture, intracranial bleed, neck sprain, neck fracture, contusions, right ankle sprain, right ankle fracture, anemia, electrolyte abnormalities, alk call intoxication Following evaluation was ordered: CBC, CMP, ethanol, x-ray right ankle Patient was initially treated with the following: Tylenol 975 mg orally, oxycodone 10 mg orally Course: 19:28 My independent interpretation patient's laboratory evaluation is as follows: WBC elevated 15,700, H&H was normal 14 and 43.3, platelet count was elevated 405,000. Glucose elevated 133. AST elevated 52, alk-phos elevated 139. Alcohol level was detectable at 38 but not above the intoxication low of 80. Patient's x-ray did not reveal any acute fracture. Patient was placed in an Aircast walking boot, given crutches with crutches training. She will be discharged with prescriptions for ibuprofen and Tylenol for pain not relieved by these medications she was prescribed oxycodone 5 mg every 6 hours as needed for pain. She was given printed and verbal instructions. Patient will need to follow-up with either PCP or orthopedic group. Admission/Observation Consideration of admission/observation: Escalation of care including admission/observation considered Lab Data [facility] Lab Attestation statement: I reviewed the patient's lab results. 02/11/24 18:42 02/11/24 18:42 Labs: Lab Results 02/11/24 Range/Units 18:42 WBC 15.7 H (4.8-10.8) X10*3/uL RBC 4.90 (4.20-5.50) X10*6/uL Hgb 14.8 (12.0-16.0) g/dl Hct 43.3 (37.0-47.0) % MCV 88.4 (80.0-98.0) fL MCH 30.2 (27.0-33.0) pg MCHC 34.2 (31.0-35.0) g/dl RDW 13.2 (11.0-16.0) % Plt Count 405 H (160-400) X10*3/uL MPV 10.1 (9.4-12.3) fL Immature Gran % (Auto) 0.7 H (0.0-0.4) % Neut % (Auto) 79.4 H (45-73) % Lymph % (Auto) 13.4 L (20-40) % Mcdonald % (Auto) 5.4 (2-11) % Eos % (Auto) 0.6 (0-4) % Baso % (Auto) 0.5 (0-2) % Lymph # (Auto) 2.1 (1.2-4.9) X10*3/uL Mcdonald # (Auto) 0.9 (0.1-1.2) X10*3/uL Eos # (Auto) 0.1 (0.0-0.4) X10*3/uL Baso # (Auto) 0.1 (0.0-0.2) X10*3/uL Abs Immat Gran (auto) 0.11 H (0.00-0.03) X10*3/uL Absolute Neuts (auto) 12.5 H (2.0-8.3) x10*3/uL Absolute Nucleated RBC 0.000 (0.0-0.012) X10*3/uL Nucleated RBC % (auto) 0.0 (0.0-0.2) /100WBC Sodium 142 (135-145) mmol/L Potassium 4.1 (3.3-5.1) mmol/L Chloride 105 (96-108) mmol/L Carbon Dioxide 24 (22-29) mmol/L Anion Gap 17 (12-20) BUN 14 (9-16) mg/dL Creatinine 0.86 (0.5-1.4) mg/dL Estim Creat Clear Calc 80.0 Estimated GFR > 60 Random Glucose 133 H (60-115) mg/dL Calcium 10.3 H D (8.4-10.2) mg/dL Total Bilirubin 0.3 (0.0-1.0) mg/dL AST 27 (5-31) U/L ALT 52 H (0-31) U/L Alkaline Phosphatase 139 H (39-117) U/L Total Protein 8.0 (6.5-8.0) g/dL Albumin 4.9 (3.5-5.0) g/dL Ethyl Alcohol 38 mg/dL Independent Interpretation I performed an independent interpretation of an: Plain X-Ray Interpretation: My interpretation patient's right ankle x-ray is as follows: No acute fracture seen Radiology Impression Discussion of test interpretation with radiology: I have reviewed the radiologist's reading. Radiologist Impression: XR ankle RT min 3V IMPRESSION: No acute fracture or dislocation. Soft tissue swelling about the ankle joint. Dictated By: Mara Nuñez MD Independent Historian Clinical information obtained from an independent historian. History obtained from or confirmed by: Other (Family) Prescription Management I considered prescription management with: Pain Medication Discharge Plan Discharge Clinical Impression: Fall, Right ankle sprain Patient Disposition: Home, Self-Care Instructions: Ankle Sprain (ED) Additional Instructions: Your blood work was unremarkable The x-ray of your right ankle did not reveal any broken bones/fractures which is reassuring. Wear the Aircast walking boot for 1-2 weeks, use the crutches for 1-2 weeks, keep your leg elevated and apply ice for 15 minutes 4 to 6 times a day to help reduce the pain and swelling. Take ibuprofen 200 mg pills, 1 pills every 6 hours as needed for pain. Take Tylenol (acetaminophen) 500 mg pills, 2 pills every 6 hours as needed for pain. For pain not relieved by ibuprofen or Tylenol take oxycodone 5 mg pills, 1 pill every 6 hours as needed for pain. Do not drive or work while taking this medication since they can cause sleepiness. Oxycodone is a narcotic medication that can be addicting. If you are concerned about addiction you can ask the pharmacist for less pills or do not get this prescription filled. Follow-up with your doctor or the orthopedic doctors within 1-2 weeks for re- evaluation. Please return to the emergency department if your symptoms get worse or if you develop any symptoms that are concerning to you. Prescriptions: New ibuprofen 400 mg tablet 400 mg PO TID PRN (Reason: fever or pain) Qty: 30 0RF oxycodone 5 mg tablet 5 mg PO Q6H PRN (Reason: pain) Qty: 10 0RF Rx Instructions: Partial Fill upon patient request. acetaminophen [Tylenol Extra Strength] 500 mg tablet 1,000 mg PO Q6H PRN (Reason: fever or pain) Qty: 20 0RF No Action ondansetron HCl [Zofran] 4 mg tablet 4 mg PO Q6H PRN (Reason: nausea and vomiting) Qty: 10 0RF hyoscyamine sulfate 0.125 mg tablet 0.125 mg PO QID Qty: 10 0RF prednisone 10 mg tablets,dose pack 10 mg PO PER PKG DIR Qty: 48 0RF Rx Instructions: Take 4 tabs for 3 days, then 3 tabs for 3 days, then 2 tabs for 3 days, then 1 tab for 3 days. discard remainder hydrocortisone 1 % cream 1 appl topical TID PRN (Reason: itching) Qty: 28.35 0RF cyclobenzaprine 5 mg tablet 5 mg PO TID PRN (Reason: muscle spasm) Qty: 10 0RF ibuprofen 600 mg tablet 600 mg PO Q6H PRN (Reason: pain) Qty: 20 0RF oxycodone 5 mg tablet 5 mg PO Q6H PRN (Reason: pain) Qty: 10 0RF Rx Instructions: Partial Fill upon patient request. Narcotic may cause drowsiness, no driving for 6 hours after taking gabapentin 300 mg capsule 300 mg PO BEDTIME Qty: 30 0RF cyclobenzaprine 10 mg tablet 10 mg PO Q8H Qty: 20 0RF ibuprofen 600 mg tablet 600 mg PO Q8H PRN (Reason: pain) Qty: 30 0RF omeprazole 40 mg capsule,delayed release(DR/EC) 40 mg PO DAILY Qty: 20 0RF Print Language: Bel[place]ian
[2024-02-11 18:56] LABS: Basophils Absolute Auto 0.1 X10*3/uL (0.0-0.2); Basophils Percent Auto 0.5 % (0-2); Eosinophils Absolute Auto 0.1 X10*3/uL (0.0-0.4); Eosinophils Percent Auto 0.6 % (0-4); Hematocrit 43.3 % (37.0-47.0); Hemoglobin 14.8 g/dl (12.0-16.0); Imm Gran Abs Auto 0.11 X10*3/uL (0.00-0.03); Imm Gran Pct Auto 0.7 % (0.0-0.4); Lymphocytes Absolute Auto 2.1 X10*3/uL (1.2-4.9); Lymphocytes Percent Auto 13.4 % (20-40); Mean Corpuscular HGB Conc 34.2 g/dl (31.0-35.0); Mean Corpuscular Hemoglobin 30.2 pg (27.0-33.0); Mean Corpuscular Volume 88.4 fL (80.0-98.0); Mean Platelet Volume 10.1 fL (9.4-12.3); Monocytes Absolute Auto 0.9 X10*3/uL (0.1-1.2); Monocytes Percent Auto 5.4 % (2-11); Neutrophils Absolute Auto 12.5 x10*3/uL (2.0-8.3); Neutrophils Percent Auto 79.4 % (45-73); Platelet Count 405 X10*3/uL (160-400); Red Cell Distribution Width 13.2 % (11.0-16.0); White Blood Count 15.7 X10*3/uL (4.8-10.8)
[2024-02-11 19:04] LABS: Alanine Aminotransferase 52 U/L (0-31); Albumin Level 4.9 g/dL (3.5-5.0); Alkaline Phosphatase 139 U/L (39-117); Anion Gap 17 (12-20); Aspartate Amino Transferase 27 U/L (5-31); Bilirubin Total 0.3 mg/dL (0.0-1.0); Blood Urea Nitrogen 14 mg/dL (9-16); Calcium 10.3 mg/dL (8.4-10.2); Carbon Dioxide 24 mmol/L (22-29); Chloride 105 mmol/L (96-108); Estimated Glomerular Filt Rate > 60; Ethanol 38 mg/dL; Glucose Random 133 mg/dL (60-115); Potassium 4.1 mmol/L (3.3-5.1); Sodium 142 mmol/L (135-145)
[2024-02-11] MEDS: LORazepam 1 MG TABLET PO (20:00)
[2024-02-11] MEDS: oxyCODONE HCl Immed Release 5 MG TABLET 10 MG PO (20:01)
[2024-02-11] MEDS: Acetaminophen 325 MG TABLET 975 MG PO (20:02)
[2024-02-11 20:11] VITALS: BP 136/73; PULSE 90; RESP 18; TEMP 37.2; O2SAT 100
== END 2024-02-11 20:12 | disposition home or self-care (01) ==
PROVIDERS: Emergency Provider Emergency Medicine Emergency Medical Services
DX: S93.401A Sprain of unspecified ligament of right ankle, initial encounter (principal); W18.09XA Striking against other object with subsequent fall, initial encounter; Y93.01 Activity, walking, marching and hiking; Y92.9 Unspecified place or not applicable; Y99.9 Unspecified external cause status
CPT/HCPCS: 36415; 73610; 80053; 80307; 85025; 99283; 99284